=== PATIENT | female | born 2000 | race Caucasian/White ===

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

== ENCOUNTER 2021-02-14 20:19 | Emergency (ER) | payer OTHER ==
[~2021-02-14] VITALS: Ht 175.3 cm; Wt 90.7 kg
[~2021-02-14 20:19] MED LIST: ZOFRAN ODT4 MG PO
[2021-02-14] MEDS ORDERED: AMOXICILLIN 50500 M1 PO (23:15)
[2021-02-14 23:34] VITALS: BP 127/89
== END 2021-02-14 23:35 | disposition home or self-care (01) ==
LOC: M.ERS 20:19
DX: J03.90 Acute tonsillitis, unspecified (principal); Z20.822 Contact with and (suspected) exposure to COVID-19